=== PATIENT | male | born 1980 | race Hispanic/Latino ===

== ENCOUNTER 2017-10-02 13:40 | Emergency (ER) | payer SELFPAY ==
[~2017-10-02] VITALS: Ht 180.3 cm; Wt 85.1 kg
[2017-10-02] MEDS ORDERED: VALIUM2 MG PO (15:50)
[2017-10-02] MEDS ORDERED: LIDODERM 5% P1 PATCH TD (15:50)
[2017-10-02] MEDS ORDERED: NAPROXEN500 MG PO (15:50)
[2017-10-02 16:07] VITALS: BP 144/82
== END 2017-10-02 16:08 | disposition home or self-care (01) ==
LOC: EME 13:40
DX: S39.012A Strain of muscle, fascia and tendon of lower back, initial encounter (principal); X58.XXXA Exposure to other specified factors, initial encounter; R11.0 Nausea
CPT/HCPCS: 99281; 99284; J1885